=== PATIENT | female | born 1995 | race African-American/Black ===

== ENCOUNTER 2018-01-01 10:27 | Emergency (ER) | payer MEDICAID ==
[~2018-01-01] VITALS: Ht 167.6 cm; Wt 92.5 kg
[2018-01-01 10:58] VITALS: BP 156/91
[2018-01-01] MEDS ORDERED: IBUPROFEN 800 MG TAB PO ONE (11:30)
[2018-01-01] MEDS ORDERED: cefTRIAXone SOD 1,000 MG VL IM ONE (11:30)
== END 2018-01-01 12:06 | disposition home or self-care (01) ==
LOC: ER 10:27
DX: N61.0 Mastitis without abscess (principal)
CPT/HCPCS: 96372; 99283; J0696